=== PATIENT | male | born 2005 | race African-American/Black ===

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

== ENCOUNTER 2024-05-12 22:27 | Emergency (ER) | payer MEDICAID, SELFPAY ==
[2024-05-12 22:28] VITALS: BP 170/128; PULSE 121; RESP 16; TEMP 36.6; O2SAT 97; BMI 44.4
--- NOTE | 2024-05-12 22:45 | CT_ITS ---
EXAM: CT ABDOMEN AND PELVIS WITH INTRAVENOUS CONTRAST CLINICAL INDICATION: upper abdominal pain TECHNIQUE: Helically acquired images were obtained of the abdomen and pelvis with intravenous contrast. This CT exam was performed using one or more of the following dose reduction techniques: automated exposure control, adjustment of the mA and/or kV according to patient size, and/or use of iterative reconstruction technique. CONTRAST: IV 100mL Isovue-370 RADIATION DOSE: CTDIvol = 22.55 mGy, DLP = 1200.02 mGy-cm. COMPARISON: August 07, 2012, there was right pyelonephritis and bilateral nephrolithiasis on prior exam. FINDINGS: LOWER THORAX: Unremarkable. Lung bases are clear. No cardiomegaly. No significant pericardial effusion. ABDOMEN: LIVER: There is mild low-attenuation fatty-appearing liver and mild hepatomegaly, the right lobe of the liver is 19.8 cm craniocaudal. GALLBLADDER AND BILE DUCTS: The gallbladder is contracted without visible stones. No ductal dilatation. No gallbladder distention or wall edema. PANCREAS: Unremarkable. No focal cystic or solid mass. SPLEEN: Unremarkable. Normal size without focal cystic or solid mass. ADRENALS: Unremarkable. No nodules. KIDNEYS AND URETERS: Irregular stone versus cluster of tiny stones in the right kidney, overall confluent size 7 mm x 7 mm. No hydronephrosis or ureter stone. Normal renal size and position. STOMACH AND BOWEL: Moderate mixed density fluid in the stomach. No suspicious small bowel dilatation. Minimal gas and stool in the right colon. Collapsed segments of much of the mid to distal colon. Mild stool in the distal sigmoid and rectum. No focal inflammatory change. PELVIS: APPENDIX: Normal gas-filled appendix is seen on coronal images 56 through 79 extending inferiorly from the tip of the cecum. BLADDER: Unremarkable. REPRODUCTIVE: Unremarkable as visualized. No mass. ABDOMEN and PELVIS: INTRAPERITONEAL SPACE: Unremarkable. No ascites or other fluid collection. No free air. BONES/JOINTS: Unremarkable. No suspicious lytic or blastic abnormality. SOFT TISSUES: Unremarkable. No discrete abdominal or pelvic wall hernia. VASCULATURE: Unremarkable. Abdominal aorta is non-dilated. LYMPH NODES: There is mild mesenteric adenopathy, numerous mildly prominent scattered lymph nodes in the root of the mesentery and including in the right abdomen, the largest roughly 9 mm x 1.4 cm, uncertain chronicity. CT/Abdomen/Pelvis W IV Cont ONLY IMPRESSION: 1. Nonspecific findings. Mild mesenteric adenopathy may be due to mesenteric adenitis or chronic. 2. Normal appendix. 3. Mild hepatomegaly and low-attenuation fatty liver. 4. Right nephrolithiasis. Electronically Signed: Ledy Douglas MD at 0:33 EST ,
--- NOTE | 2024-05-12 22:45 | ED.VIS.GI ---
HPI HPI - GI History of Present Illness Chief Complaint: Abd Pain Informant: patient and parent Narrative Narrative: 18-year-old male presenting to the emergency department with a constant upper abdominal pain. Patient states he woke this morning with the discomfort in his epigastrium. States it is worse when he stands. He states that he has been able to eat today and did not notice a change in symptoms when he ate. He states he had a normal bowel movement. No vomiting. He does not radiate to the back. He notes he has been having some belching. He tried some antacids and antinausea medicine without relief. No prior abdominal surgeries. No reported fevers. No URI symptoms. He has never experienced this before. [facility] Medical History Marijuana smoker History of cardiac murmur as a child History of infection due to ESBL Escherichia coli Home Medications ?Medication ?Instructions ?Recorded ?Last Taken ?Type NK 05/12/24 Unknown History Allergy/AdvReac Type Severity Reaction Status Date / Time No Known Allergies Allergy Verified 05/12/24 22:27 Social History Smoking Status: Current every day smoker tobacco type: e-cigarettes ROS ROS ED Constitutional Constitutional ED: Denies chills, fever(s) or weight loss Eyes Eyes: Denies change in vision or diplopia ENT ENT ED: Denies ear pain, rhinorrhea or sore throat Cardiovascular Cardiovascular: Denies chest pain, orthopnea, palpitations or racing heartbeat Respiratory/Chest Respiratory/Chest: Denies cough, dyspnea or orthopnea Gastrointestinal Gastrointestinal: Reports abdominal pain; Denies constipation, diarrhea, nausea or vomiting Genitourinary Genitourinary ED: Denies dysuria, hematuria or urinary frequency Musculoskeletal Musculoskeletal: Denies arthralgias, back pain or myalgias Integumentary Denies abscess or rash Neurologic Neurologic: Denies headache(s) or weakness Psychiatric Psychiatric: Denies anxiety, depression, suicidal ideation or suicidal thoughts Endocrine Endocrinology: Denies polydipsia, polyphagia or polyuria Allergic/Immunologic Allergic/Immunologic ED: Denies mouth swelling, tongue swelling or urticaria EXAM Physical Exam Const Vital Signs: 05/12/24 22:28 05/13/24 00:27 Temperature 98 F Temperature Source Temporal Pulse Rate 121 H 102 H Respiratory Rate 16 18 Blood Pressure 170/128 H 145/96 H Blood Pressure Mean 142 112 Pulse Ox 97 96 Oxygen Delivery Method Room Air Room Air Positive well nourished, well developed and obese General Appearance ED: well developed and NAD Nutritional Appearance: obese HEENT Reports normocephalic, head/scalp atraumatic and moist mucous membranes Eyes PERRL and EOMs intact bilaterally Neck no lymphadenopathy, supple and no JVD Resp normal respiratory effort and clear to auscultation bilaterally Cardio regular rate, regular rhythm and no murmurs GI non-distended GI Narrative: no hernia felt with half situp. mild ttp Inspection: Negative for abdominal distention Auscultation: normoactive bowel sounds Palpation: soft and tender epigastric; Negative for guarding, rigid or rebound tenderness present Back/Spine no CVA tenderness and normal ROM Extremity normal to inspection General Extremety ED: Negative for edema General Extremity: Negative for edema Neuro oriented x3 and CN's II-XII intact bilaterally Sensorium / Orientation: alert Motor Exam: strength 5/5 throughout Psych mental status grossly normal Mood & Affect: Negative for depressed or tearful Skin no rashes or lesions noted and no wounds MDM MDM MDM Narrative Medical decision making narrative: Differential diagnosis includes but not limited to peptic ulcer disease/gastritis GERD gastric outlet obstruction pancreatitis biliary colic hernia White count nonspecifically elevated 14.4. Glucose 113 ALT T99 AST 35 alk phos [address] of the abdomen pelvis demonstrates a large amount of food product in his stomach. He states he ate about 6 hours prior to the CT. There is some mild mesenteric lymphadenopathy noted. Hepatomegaly with fatty liver noted and right nephrolithiasis. Patient received a dose of Toradol. Clinically I think this most likely a viral syndrome. He is a daily cannabis user we did talk about cannabis hyperemesis syndrome is something to be look out for. We talked about gastroparesis. At this point I think the patient can be discharged home. Would recommend follow-up as needed return if worsening or concerns History & Record Review Discussion w/independent historian: Patient and Family Lab Data Labs: Laboratory Results - last 24 hr 05/12/24 23:00 WBC 14.4 H RBC 5.69 Hgb 14.0 Hct 45.8 MCV 80.5 MCH 24.6 L MCHC 30.6 L RDW Std Deviation 40.2 RDW Coeff of Jonathan 13.8 Plt Count 344 MPV 11.0 Immature Gran % (Auto) 0.300 Neut % (Auto) 55.4 Lymph % (Auto) 29.9 [place] % (Auto) 6.9 Eos % (Auto) 7.0 H Baso % (Auto) 0.5 Absolute Neuts (auto) 8.0 H Absolute Lymphs (auto) 4.31 Nucleated RBC % 0 Sodium 139 Potassium 3.8 Chloride 106 Carbon Dioxide 26.0 Anion Gap 7 BUN 12 Creatinine 0.85 Estim Creat Clear Calc 163.14 Est GFR (MDRD) Af Amer 149 Est GFR (MDRD) Non-Af 124 BUN/Creatinine Ratio 14.2 Glucose 113 H Calcium 9.5 Total Bilirubin 0.20 Direct Bilirubin 0.07 AST 35 ALT 99 H Alkaline Phosphatase 127 H Total Protein 8.4 H Albumin 4.0 Globulin 4.4 H Lipase 34 Radiography Diagnostic Testing: Clinical Impression(s) from Imaging Studies Abdomen/Pelvis CT 05/12/24 22:45 IMPRESSION: 1. Nonspecific findings. Mild mesenteric adenopathy may be due to mesenteric adenitis or chronic. 2. Normal appendix. 3. Mild hepatomegaly and low-attenuation fatty liver. 4. Right nephrolithiasis. Electronically Signed: Ledy Douglas MD at 0:33 EST , Discharge Plan Triage Chief Complaint: Abd Pain ED Provider: Juvencio Jett Dx/Rx/DC Orders Clinical Impression: Abdominal pain, Acute mesenteric adenitis Instructions: ED Adenitis, Mesenteric Prescriptions: No Action NK Primary Care Provider: Care Physician,No Primary Referrals: Care Physician,No Primary [Primary Care Provider] - Print Language: [place] Disposition Disposition: Home, Self Care
[2024-05-12] MEDS: Ketorolac 30 MG/ML Syringe IV (22:59)
[2024-05-12 23:08] LABS: Absolute Lymphocyte Count 4.31 X10^3/uL (0.83-4.51); Basophil# 0.07 X10^3/uL; Basophil% 0.5 % (0-1); Eosinophil# 1.01 X10^3/uL; Hematocrit 45.8 % (40-54); Lymphocyte # 4.31 X10^3/ul (0.83-4.51); Lymphocyte % 29.9 % (19-41); Mean Corp Hgb Conc 30.6 g/dL (32-36); Mean Corpuscular Hgb 24.6 pg (27.0-32.0); Mean Corpuscular Volume 80.5 fL (80-94); Monocyte% 6.9 % (0-10); NRBC Flagged by Analyzer 0 % (0-5); Neutrophil # 7.97 X10^3/uL (2.7-7.7); Neutrophil % 55.4 % (47-70); Platelet Count 344 K/mm3 (150-450); RBC Distribution Width CV 13.8 % (11.6-14.6); RBC Distribution Width SD 40.2 fl (35.1-43.9); Red Blood Count 5.69 M/mm3 (4.6-6.2); White Blood Count 14.4 K/mm3 (4.4-11.0)
[2024-05-12 23:27] LABS: AST(SGOT) 35 U/L (15-37); Alanine Aminotransfer ALT/SGPT 99 U/L (16-61); Alkaline Phosphatase 127 U/L (45-117); Anion Gap 7 (5-15); BUN 12 mg/dL (7-18); BUN/Creat Ratio 14.2 RATIO (10-20); Bilirubin, Direct 0.07 mg/dL (0.00-0.30); Calcium,Total 9.5 mg/dL (8.5-10.1); Chloride 106 mmol/L (98-107); Creatinine, Serum 0.85 mg/dL (0.70-1.30); EST Glomerular Filtration Rate 124 mL/min (>60); Est Glom Filt Rate - Afr Amer 149 mL/min (>60); Estimated Creatinine Clearance 163.14 ml/min; Globulin 4.4 g/dL (2.2-4.2); Glucose 113 mg/dL (74-106); Lipase 34 U/L (13-75); Potassium 3.8 mmol/L (3.5-5.1); Protein, Total 8.4 g/dL (6.4-8.2); Sodium Level 139 mmol/L (136-145)
[2024-05-13 00:27] VITALS: BP 145/96; PULSE 102; RESP 18; O2SAT 96
[2024-05-13 00:54] VITALS: BP 161/108; PULSE 106; RESP 18; TEMP 36.8; O2SAT 97
== END 2024-05-13 00:55 | disposition home or self-care (01) ==
PROVIDERS: Emergency Provider Emergency Medicine; Visit Provider Emergency Medicine
DX: I88.0 Nonspecific mesenteric lymphadenitis (principal); R10.13 Epigastric pain; K76.0 Fatty (change of) liver, not elsewhere classified; N20.0 Calculus of kidney; E66.9 Obesity, unspecified; F17.210 Nicotine dependence, cigarettes, uncomplicated
CPT/HCPCS: 74177; 80048; 80076; 83690; 85025; 96374; 99283; Q9967; A4216